=== PATIENT | female | born 1970 | race Caucasian/White ===

== ENCOUNTER → 2017-10-15 | Outpatient (CLI) | payer OTHER ==
[~2017-10-15] MED LIST: ANTIVERT25 MG PO; CIPRO500 MG PO; LOMOTIL TABLET1 EACH PO; METOPROLOL TART50 MG PO; PAXIL CR37.5 MG PO
== END | disposition home or self-care (01) ==
LOC: CT 18:10
DX: S00.03XA Contusion of scalp, initial encounter (principal); X58.XXXA Exposure to other specified factors, initial encounter
CPT/HCPCS: 70450